=== PATIENT | male | born 1955 | race Caucasian/White ===

== ENCOUNTER → 2017-09-18 | Outpatient (CLI) | payer BC ==
[~2017-09-18] MED LIST: ASP81TEC PO; HYDR-3454 PO; LISI1TAB10 PO; LORA-790 PO; LORA10CA PO; MULT-873 PO; MULT-974 PO; NISO8.5T3 PO
--- NOTE | 2017-09-18 11:38 | Diagnostic Imaging Report ---
INDICATION: Chest congestion. Time of exam 10:05 AM No prior studies are available for comparison. The heart size is normal. The pulmonary vascularity is unremarkable. The lungs are clear. No infiltrate, effusion or pneumothorax is detected. Impression: No acute cardiopulmonary process is detected. Dictated by: Dictated on workstation # [id number]
== END ==
LOC: RAD 09:34
PROVIDERS: ATTEND Nurse Practitioner
DX: R05 Cough (principal); R09.89 Other specified symptoms and signs involving the circulatory and respiratory systems
CPT/HCPCS: 71046

== ENCOUNTER 2019-03-11 11:00 | Outpatient (CLI) | payer BC ==
[~2019-03-11] VITALS: Ht 190.5 cm; Wt 127.2 kg
[~2019-03-11 11:00] MED LIST changes: +AMLO10TA7 PO; +ASPI-586 PO; +FLUT9.9S NS; +LISI-552 PO; +MULT-178 PO
== END 2019-03-12 09:05 | disposition home or self-care (01) ==
LOC: PREOP 11:00
PROVIDERS: ATTEND Internal Medicine
DX: Z01.818 Encounter for other preprocedural examination (principal)

== ENCOUNTER 2019-03-13 07:05 | Day surgery (SDC) | payer BC ==
--- NOTE | 2019-03-03 18:21 | HISTORY AND PHYSICAL ---
DATE OF SERVICE: COLONOSCOPY HISTORY AND PHYSICAL HISTORY OF PRESENT ILLNESS: The patient is a 63-year-old white male referred by Dr. Braswell for screening colonoscopy. He is deemed to be of average risk as he is not aware of any family history for colon cancer or colon polyps. He had one colonoscopy a little over 5 years ago at which time, he had 1 polyp removed. He states that he has been feeling well. He has noted no bowel habit change. Denies bright red blood per rectum or melena. PAST MEDICAL HISTORY: Significant for hypertension with no reported history of coronary artery disease. PAST SURGICAL HISTORY: Noncontributory. SOCIAL HISTORY: He is employed, . No past smoking history. Reports 4 to 5 beers per week that is the only alcohol consumption. FAMILY HISTORY: His father and sister of some form of leukemia in their 50s and 60s. Mother has a history of skin cancer. He does not know what type, still living. MEDICATIONS ON ADMISSION: Include: 1. Lisinopril and hydrochlorothiazide 20/25. 2. Levitra 20 mg p.r.n. 3. Aspirin 81 mg daily. 4. Claritin 10 mg daily. 5. Amlodipine 10 mg daily. 6. Flonase nasal spray daily. REVIEW OF SYSTEMS: CONSTITUTIONAL: Denies night sweats, chills, fever or change in weight. CARDIOVASCULAR: He denies chest pain, palpitations, syncope or presyncope. RESPIRATORY: He denies shortness of breath, dyspnea on exertion, cough or wheezing. GI: As noted in the HPI. PHYSICAL EXAMINATION: GENERAL: Reveals a pleasant overweight white male in no acute distress. VITAL SIGNS: Weight was 287 pounds, blood pressure 138/80, heart rate 72 and regular. HEENT: Unremarkable. He has a Mallampati class 3 oropharyngeal configuration and sclerae nonicteric. NECK: Revealed no JVD, adenopathy or bruits. CHEST: Clear to auscultation. CARDIOVASCULAR: Reveals a regular rate and rhythm without murmur, S3 or S4. ABDOMEN: Soft, supple, obese, nontender. No mass, organomegaly, or tenderness was noted. No bruits were appreciated. EXTREMITIES: Reveal no cyanosis, clubbing or edema. ASSESSMENT AND PLAN: The patient was set up for screening colonoscopy on 03/13/2019. Prep instructions were given and questions were answered. With evaluation and review of electronic medical record, 45 minutes care time was spent today by myself and another 15 minutes of staff time going over prep instructions and setting up the procedure. I thank you for the referral of this pleasant gentleman. Sincerely, Job ID: [id number] DocumentID: [id number] Dictated Date: 02/13/2019 11:36:09 Loss Control Manager Date: 02/13/2019 12:00:20 Dictated By: ANGELI MENCHACA MD
[2019-03-13] VITALS (12 sets, daily range): BP systolic 126–148; BP diastolic 66–86
[2019-03-13] MEDS ORDERED: D5 LR IV SOLUTION 1,000 ML IV STA (07:20)
[2019-03-13] MEDS ORDERED: MIDAZOLAM 2 MG/2 ML (VERSED) VIAL IVP ONE (07:30)
[2019-03-13] MEDS ORDERED: LIDOCAINE JELLY 2% 6 ML SYRINGE MM PRN (07:30)
[2019-03-13] MEDS ORDERED: fentaNYL INJECTION 100 MCG/2 ML AMP IVP ONE (07:30)
[2019-03-13] MEDS ORDERED: LIDOCAINE JELLY 2% 6 ML SYRINGE ONE (07:38)
[2019-03-13] MEDS ORDERED: MIDAZOLAM 2 MG/2 ML (VERSED) VIAL ONE ×2 (07:39)
[2019-03-13] MEDS ORDERED: fentaNYL INJECTION 100 MCG/2 ML AMP ONE ×2 (07:39)
--- NOTE | 2019-03-13 09:25 | Pre-Op Note & Conscious Sedat ---
Pre-Operative Progress Note H&P Reviewed The H&P was reviewed, patient examined and no changes noted. Date H&P Reviewed: Mar 13, 2019 Time H&P Reviewed: 07:40 Conscious Sedation Pre-Proced ASA Score 2 For ASA 3 and 4: Consider anesthesia and medical clearance. Also, for patients with a history of failed moderate sedation consider anesthesia. Airway Lungs Heart ASA score ASA 1: a normal healthy patient ASA 2: a patient with a mild systemic disease (mid diabetes, controlled hypertension, obesity ASA 3: a patient with a severe systemic disease that limits activity (angina, COPD, prior Myocardial infarction) ASA 4: a patient with an incapacitating disease that is a constant threat to life (CHF, renal failure) ASA 5: a moribund patient not expected to survive 24 hrs. (ruptured aneurysm) ASA 6: a declared brain- patient whose organs are being harvested. For emergent operations, add the letter E after the classification Mallampati Classification Grade 2 Sedation Plan Analgesia, Amnesia, Plan communicated to team members, Discussed options with patient/fam, Discussed risks with patient/fam The patient is an appropriate candidate to undergo the planned procedure, sedation, and anesthesia. The patient immediately re-assessed prior to indication. ANGELI MENCHACA MD Mar 13, 2019 09:24
--- NOTE | 2019-03-13 16:38 | OPERATIVE REPORT ---
DATE OF SERVICE: COLONOSCOPY SUMMARY INDICATION FOR THE PROCEDURE: Screening colonoscopy. The patient was placed in the left lateral decubitus position. Prior to undergoing colonoscopy, digital rectal evaluation was performed. Anal sphincter tone was normal and the perianal reflexes intact. Prostate is unremarkable to digital inspection and no abnormalities, no additional inspection of anal canal or distal rectal vault. The colonoscope was then inserted into the rectum and under direct visualization advanced to cecum. The cecum was identified by identification of the ileocecal valve with cecal strap. Photographic documentation was obtained. A careful inspection was made as the colonoscope was withdrawn. Quality of prep was good. The patient tolerated the procedure well. FINDINGS: There was no evidence for internal or external hemorrhoids. Two diminutive mid rectal polyps were noted. They were biopsied and ablated with no subsequent blood loss. Present in the proximal sigmoid colon was another diminutive polyp. It was biopsied and ablated and submitted for histopathology. No evidence for diverticular disease was noted. The descending colon, splenic flexure, transverse colon, hepatic flexure, ascending colon and cecum were unremarkable. ASSESSMENT: Three diminutive polyps were removed today, two from the rectum and one from the proximal sigmoid colon. This was an otherwise normal colonoscopy to the cecum. As long as there are no surprises on histopathology report, we would advocate consideration for repeat screening colonoscopy in 5 years. Job ID: [id number] DocumentID: [id number] Dictated Date: 03/13/2019 11:13:44 Client Relations Representative Date: 03/13/2019 16:37:44 Dictated By: ANGELI MENCHACA MD
== END 2019-03-13 09:40 | disposition home or self-care (01) ==
LOC: ENDO 07:05
PROVIDERS: ATTEND Internal Medicine
DX: Z12.11 Encounter for screening for malignant neoplasm of colon (principal); D12.5 Benign neoplasm of sigmoid colon; D12.8 Benign neoplasm of rectum; I10 Essential (primary) hypertension; Z79.82 Long term (current) use of aspirin; Z79.899 Other long term (current) drug therapy; Z86.010 Personal history of colon polyps